=== PATIENT | female | born 1985 | race Caucasian/White ===

== ENCOUNTER 2018-04-28 14:49 | Emergency (ER) | payer OTHER ==
--- NOTE | 2018-04-28 15:18 | ED Physician Documentation ---
History of Present Illness - Stated complaint Stated Complaint: CARBON MENOXIDE EXPOSURE - Chief complaint Chief Complaint: General - History obtained from History obtained from: Patient - History of Present Illness Timing: Other (They have been helping their parents move. They would last in the house yesterday morning. She has had headaches and nausea. She does have a history of migraines but her Imitrex is not helpful. It was found during the moving screening process that the furnace in that house was leaking carbon monoxide.) Review of Systems Constitutional: reports: Fatigue. denies: Fever, Chills Nose: reports: Rhinorrhea / runny nose Cardiac: denies: Chest pain / pressure, Palpitations Respiratory: reports: Dyspnea. denies: Cough GI: reports: Nausea, Vomiting. denies: Abdominal Pain : denies: Now EGA PD PAST MEDICAL HISTORY - Past Medical History GI: Chronic diarrhea Psych: None - Past Surgical History Past Surgical History: Yes General: Cholecystectomy - Present Medications Home Medications: Ambulatory Orders Medication Instructions Recorded Confirmed Ondansetron Odt [Zofran] 4 mg TL Q6H PRN #10 tablet 06/15/14 04/28/18 Butalb/Acetaminophen/Caffeine 1 - 2 each PO Q4H PRN #10 capsule 07/19/14 04/28/18 [Fioricet 50-300-40 mg Capsule] SUMAtriptan [Imitrex] 25 mg PO PRN PRN 04/28/18 04/28/18 - Allergies Allergies/Adverse Reactions: Allergies Allergy/AdvReac Type Severity Reaction Status Date / Time No Known Drug Allergies Allergy Verified 04/28/18 15:11 - Social History Does the pt smoke?: No Smoking Status: Never smoker Does the pt drink ETOH?: No Does the pt have substance abuse?: No - Immunizations Immunizations are current?: Yes - POLST Patient has POLST: No PD ED PE NORMAL - Vitals Vital signs reviewed: Yes - General General: Alert and oriented X 3, No acute distress - HEENT HEENT: PERRL, EOMI, Ears normal - Neck Neck: Supple, no meningeal sign, No bony TTP - Cardiac Cardiac: RRR, No murmur - Respiratory Respiratory: No respiratory distress, Clear bilaterally - Abdomen Abdomen: Non tender - Derm Derm: No rash - Neuro Neuro: Alert and oriented X 3, Normal speech Results - Vitals Vitals: Vital Signs - 24 hr 04/28/18 04/28/18 15:09 16:56 Temperature 37.2 C 37.1 C Heart Rate 96 80 Respiratory 18 12 Rate Blood Pressure 122/88 H 109/63 O2 Saturation 99 98 Oxygen O2 Source Room air - Labs Labs: Laboratory Tests 04/28/18 15:25 VBG Total Hgb 14.2 VBG Oxyhemoglobin 67 L VBG Carboxyhemoglobin 1.1 VBG Methemoglobin 0.2 Departure - Departure Disposition: 01 Home, Self Care Clinical Impression: Migraine Condition: Stable Instructions: ED Cephalgia Unspecified Comments: Call your doctor to arrange a follow-up appointment, make the next available appointment. In the interim, return anytime if worse or if new symptoms develop. Discharge Date/Time: 04/28/18 17:11
[2018-04-28] MEDS ORDERED: METOCLOPRAMIDE 10 MG/2 ML VIAL IM STA (16:10)
[2018-04-28] MEDS ORDERED: HYDROmorphone 2 MG/ML VIAL IM STA (16:10)
[2018-04-28 16:57] VITALS: BP 109/63
== END 2018-04-28 17:11 | disposition home or self-care (01) ==
LOC: ED 14:49
DX: G43.909 Migraine, unspecified, not intractable, without status migrainosus (principal); Z77.29 Contact with and (suspected) exposure to other hazardous substances
CPT/HCPCS: 36415; 82375; 96372; 99282; 99283; J1170; J2765

== ENCOUNTER 2018-06-25 09:41 | Outpatient (CLI) | payer OTHER ==
--- NOTE | 2018-06-27 09:36 | MRI Report ---
Reason: INTERNAL DERANGEMENT,RIGHT KNEE Procedure Date: 06/25/2018 Accession Number: [id number] / [id number] Procedure: MRI - Knee RT W/O CPT Code: FULL RESULT: EXAM: RIGHT KNEE MRI WITHOUT CONTRAST EXAM DATE: 06/25/2018 10:56 AM. CLINICAL HISTORY: Internal derangement, right knee. COMPARISON: None. TECHNIQUE: Multiplanar, multisequence T1-weighted and fluid-sensitive sequences of the knee without contrast. Other: None. FINDINGS: Bones: Focal subjacent marrow edema at the lateral aspect of the medial femoral condyle. Overlying articular cartilage is normal. Articular Cartilage: Unremarkable. Medial Meniscus: The medial meniscus is intact. Lateral Meniscus: The lateral meniscus is intact. Cruciate Ligaments: The anterior and posterior cruciate ligaments are intact. Collateral Ligaments: The medial collateral and lateral collateral ligamentous structures are intact. Tendons: The quadriceps, patellar, semimembranosus, and popliteus tendons are unremarkable. Musculature: No edema or fatty atrophy. Other: No effusion. Small popliteal cyst. No loose bodies. The medial and lateral retinacula are intact. Some edema seen in the posterior aspect of Hoffa's fat pad. IMPRESSION: 1. Focal subjacent marrow edema at the lateral aspect of the medial femoral condyle. Overlying articular cartilage is normal. 2. Menisci, cruciates and collaterals appear unremarkable. 3. Small popliteal cyst. Some edema over the posterior aspect of Hoffa's fat pad. RADIA
== END 2018-06-25 09:42 | disposition home or self-care (01) ==
LOC: DI 09:41
PROVIDERS: ATTEND Physician Assistant
DX: M23.91 Unspecified internal derangement of right knee (principal); M71.21 Synovial cyst of popliteal space [Baker], right knee

== ENCOUNTER 2018-08-28 11:52 | Emergency (ER) | payer OTHER ==
[2018-08-28 12:52] LABS: BASOPHILS % (AUTO) 0.4 %; EOSINOPHILS % (AUTO) 0.4 %; HGB - HEMOGLOBIN 14.1 g/dL (12.0-16.0); LYMPHOCYTES # (AUTO) 0.6 10^3/uL (1.5-3.5); LYMPHOCYTES % (AUTO) 11.6 %; MEAN CORPUSCULAR HGB CONC 33.8 g/dL (32.0-36.0); MEAN CORPUSCULAR VOLUME 94.8 fL (81.0-99.0); MEAN PLATELET VOLUME 9.7 fL (7.9-10.8); MONOCYTES # (AUTO) 0.4 10^3/uL (0.0-1.0); MONOCYTES % (AUTO) 6.5 %; NEUTROPHILS # (AUTO) 4.5 10^3/uL (1.5-6.6); NEUTROPHILS % (AUTO) 80.7 %; PLT - PLATELET COUNT 232 10^3/uL (130-450); RED CELL DISTRIBUTION WIDTH 12.2 % (12.0-15.0); WHITE BLOOD COUNT 5.5 x10^3/uL (4.8-10.8)
[2018-08-28 13:09] LABS: ALBUMIN 4.3 g/dL (3.2-5.5); ALBUMIN/GLOBULIN RATIO 1.3 (1.0-2.2); BILIRUBIN,TOTAL 1.1 mg/dL (0.2-1.0); CALCIUM 8.9 mg/dL (8.5-10.3); CREATININE 0.7 mg/dL (0.4-1.0); TOTAL PROTEIN 7.7 g/dL (6.7-8.2)
[2018-08-28] MEDS ORDERED: ONDANSETRON ODT 4 MG TABLET TL STA (13:20)
[2018-08-28] MEDS ORDERED: ALBUTEROL NEB 2.5 MG/3 ML INH STA (13:20)
[2018-08-28 13:34] LABS: GLUCOSE, URINE (UA) NEGATIVE (NEGATIVE); KETONES,URINE (UA) >=80 mg/dL (NEGATIVE); LEUKOCYTE ESTERASE, URINE NEGATIVE (NEGATIVE); NITRITE,URINE NEGATIVE (NEGATIVE); OCCULT BLOOD,URINE NEGATIVE (NEGATIVE); PROTEIN,URINE 30 mg/dL (NEGATIVE); UROBILINOGEN,URINE 0.2 (NORMAL) E.U./dL (NORMAL)
--- NOTE | 2018-08-28 13:35 | ED Physician Documentation ---
History of Present Illness - Stated complaint Stated Complaint: VOMITING/COUGH/HEADACHE - Chief complaint Chief Complaint: General - History obtained from History obtained from: Patient - History of Present Illness Timing: How many days ago (2) Pain level max: 3 Pain level now: 3 - Additonal information Additional information: 32-year-old female presents the emergency department with fevers and coughing for the past 2 days. She is occasionally breast-feeding her [id number]. She is having coughing fits which caused her to gag and vomit. Cough is mostly nonproductive. Nothing makes it better or worse. 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 : None HEENT: None Psych: None Musculoskeletal: None Derm: None - Past Surgical History Past Surgical History: Yes General: Cholecystectomy - Present Medications Home Medications: Ambulatory Orders Medication Instructions Recorded Confirmed Ondansetron Odt [Zofran] 4 mg TL Q6H PRN #10 tablet 06/15/14 04/28/18 Butalb/Acetaminophen/Caffeine 1 - 2 each PO Q4H PRN #10 capsule 07/19/14 04/28/18 [Fioricet 50-300-40 mg Capsule] SUMAtriptan [Imitrex] 25 mg PO PRN PRN 04/28/18 04/28/18 Albuterol Sulf [Ventolin Hfa 1 - 2 puffs INH Q4HR PRN #1 inhaler 08/28/18 Inhaler] Benzonatate [Tessalon Perle] 100 - 200 mg PO TID PRN #30 capsule 08/28/18 Cefdinir 300 mg PO BID #20 capsule 08/28/18 Ondansetron Odt [Zofran] 4 mg TL Q6H PRN #10 tablet 08/28/18 - Allergies Allergies/Adverse Reactions: Allergies Allergy/AdvReac Type Severity Reaction Status Date / Time No Known Drug Allergies Allergy Verified 04/28/18 15:11 - Social History Does the pt smoke?: No Smoking Status: Never smoker Does the pt drink ETOH?: No Does the pt have substance abuse?: No - Immunizations Immunizations are current?: Yes - POLST Patient has POLST: No PD ED PE NORMAL - Vitals Vital signs reviewed: Yes - General General: Alert and oriented X 3, No acute distress, Well developed/nourished - HEENT HEENT: Moist mucous membranes - Neck Neck: Supple, no meningeal sign - Cardiac Cardiac: RRR - Respiratory Respiratory: No respiratory distress, Other (Wheezing and rhonchi right lower lobe) - Abdomen Abdomen: Soft, Non tender, Non distended - Derm Derm: Warm and dry - Extremities Extremities: No edema - Neuro Neuro: Alert and oriented X 3 - Psych Psych: Normal mood, Normal affect Results - Vitals Vitals: Vital Signs - 24 hr 08/28/18 08/28/18 08/28/18 12:27 13:38 13:45 Temperature 37.5 C Heart Rate 98 105 H 105 H Respiratory 20 18 20 Rate Blood Pressure 104/70 99/58 L O2 Saturation 98 95 08/28/18 15:51 Temperature Heart Rate 95 Respiratory 16 Rate Blood Pressure 94/54 L O2 Saturation 98 Oxygen O2 Source Room air - Labs Labs: Laboratory Tests 08/28/18 08/28/18 08/28/18 12:48 12:48 13:27 WBC 5.5 RBC 4.40 Hgb 14.1 Hct 41.7 MCV 94.8 MCH 32.0 H MCHC 33.8 RDW 12.2 Plt Count 232 MPV 9.7 Neut # (Auto) 4.5 Lymph # (Auto) 0.6 L [place] # (Auto) 0.4 Eos # (Auto) 0.0 Baso # (Auto) 0.0 Absolute Nucleated RBC 0.00 Nucleated RBC % 0.0 Sodium 141 Potassium 3.1 L Chloride 104 Carbon Dioxide 23 Anion Gap 14.0 H BUN 12 Creatinine 0.7 Estimated GFR (MDRD) 98 Glucose 99 Calcium 8.9 Total Bilirubin 1.1 H AST 14 ALT 14 Alkaline Phosphatase 77 Total Protein 7.7 Albumin 4.3 Globulin 3.4 Albumin/Globulin Ratio 1.3 Lipase 20 L Urine Color YELLOW Urine Clarity HAZY Urine pH 6.0 Ur Specific [place] >=1.030 H Urine Protein 30 H Urine Glucose (UA) NEGATIVE Urine Ketones >=80 H Urine Occult Blood NEGATIVE Urine Nitrite NEGATIVE Urine Bilirubin NEGATIVE Urine Urobilinogen 0.2 (NORMAL) Ur Leukocyte Esterase NEGATIVE Urine RBC 0-5 Urine WBC 4-5 Ur Squamous Epith Cells MANY Squamous H Urine Bacteria Many H Urine Mucus Marked Strands Ur Microscopic Review INDICATED Urine Culture Comments NOT INDICATED - Rads (name of study) cxr Radiology: Prelim report reviewed, EMP read contemporaneously, See rad report (No acute disease) PD MEDICAL DECISION MAKING - ED course Complexity details: reviewed results, re-evaluated patient, considered differential, d/w patient, d/w family ED course: Patient feels better after IV fluids and nebulizer treatment. Tolerating p.o. without difficulty. Concern for clinical pneumonia. Will place on azithromycin. Patient is well-appearing, nontoxic. Afebrile. No hypoxia. Patient counseled regarding signs and symptoms for which I believe and urgent re-evaluation would be necessary. Patient with good understanding of and agreement to plan and is comfortable going home at this time This document was made in part using voice recognition software. While efforts are made to proofread this document, sound alike and grammatical errors may occur. Departure - Departure Disposition: 01 Home, Self Care Clinical Impression: Atypical pneumonia Condition: Good Health Concerns: cough Plan of Treatment: abx, inhaler Care Goals: improve Assessment: improved Instructions: ED Pneumonia Adult Follow-Up: Carla Rosario PA-C [Primary Care Provider] - Within 1 week Prescriptions: Albuterol Sulf [Ventolin Hfa Inhaler] 1 - 2 puffs INH Q4HR PRN #1 inhaler PRN Reason: Shortness Of Air/Wheezing Benzonatate [Tessalon Perle] 100 - 200 mg PO TID PRN #30 capsule PRN Reason: Cough Cefdinir 300 mg PO BID #20 capsule Ondansetron Odt [Zofran] 4 mg TL Q6H PRN #10 tablet PRN Reason: Nausea / Vomiting Comments: Take all antibiotics until gone. Return if you worsen. Follow-up with your doctor for further evaluation and care. Try to avoid breast feeding with the medications. Discharge Date/Time: 08/28/18 15:52
[2018-08-28 13:38] LABS: BILIRUBIN,URINE NEGATIVE (NEGATIVE); CLARITY,URINE HAZY (CLEAR); ICTOTEST,URINE NEGATIVE
[2018-08-28] MEDS ORDERED: SODIUM CHLORIDE 0.9% 1,000 ML IV ONE (13:42)
[2018-08-28 13:45] LABS: BACTERIA,URINE Many /HPF (None Seen); MUCUS,URINE Marked Strands; RBC,URINE 0-5 /HPF (0-5); SQUAMOUS EPITHELIAL CELL,UR MANY Squamous (<= Few)
--- NOTE | 2018-08-28 13:49 | XRAY Report ---
Reason: cough Procedure Date: 08/28/2018 Accession Number: [id number] / [id number] Procedure: XR - Chest 2 View X-Ray CPT Code: 93666 FULL RESULT: EXAM: CHEST RADIOGRAPHY EXAM DATE: 08/28/2018 01:31 PM. CLINICAL HISTORY: Cough. COMPARISON: ABDOMEN ACUTE 09/11/2013 11:21 AM. TECHNIQUE: 2 views. FINDINGS: Lungs/Pleura: No focal opacities evident. No pleural effusion. No pneumothorax. Normal volumes. Mediastinum: Heart and mediastinal contours are unremarkable. Other: None. IMPRESSION: Normal 2-view chest radiography. RADIA
[2018-08-28 15:52] VITALS: BP 94/54
== END 2018-08-28 15:52 | disposition home or self-care (01) ==
LOC: ED 11:52
DX: J18.9 Pneumonia, unspecified organism (principal)
CPT/HCPCS: 36415; 71046; 80053; 81001; 83690; 85025; 94640; 96360; 96361; 99283; 99284; Q0162; 81003; 87086

== ENCOUNTER 2019-12-20 17:33 | Emergency (ER) | payer OTHER ==
[2019-12-20] MEDS ORDERED: SODIUM CHLORIDE 0.9% 1,000 ML IV STA (19:04)
[2019-12-20] MEDS ORDERED: diphenhydrAMINE INJ 50 MG/ML VIAL IVP STA (19:04)
[2019-12-20] MEDS ORDERED: METOCLOPRAMIDE 10 MG/2 ML VIAL IVP STA (19:04)
--- NOTE | 2019-12-20 19:07 | ED Physician Documentation ---
History of Present Illness - Stated complaint Stated Complaint: LEFT SIDE WEAKNESS/BLURRY VISION - Chief complaint Chief Complaint: Neuro - Additonal information Additional information: 34-year-old female presents the emergency department for evaluation of a left- sided headache that has been present now for 48 hours. This young lady is about 12-1/2 weeks . G4, . She does have a history of recurrent migraines that she typically takes Imitrex for. However with the she has been unable to take that. She did try taking Fioricet prescribed by her OB without relief. She has a light but no noise sensitivity. Headache is left- sided with radiation to her neck and arm. She has been told that she has a discogenic headaches as well that often cause pain in her neck. She does feel fuzzy and lightheaded. She has been vomiting which she thinks is contributing to the symptoms. This migraine is not different than typical. She reports to me that in 2017 she had extensive MRA and MRI imaging of the brain that was essentially unremarkable. Patient denies fever, chills chest pain or shortness of breath. She denies dysuria urgency or frequency. Patient is attended by an [facility] at [facility]. She has had an ultrasound confirming intrauterine . She denies vaginal bleeding pelvic pain or loss of fluids Review of Systems Constitutional: reports: Reviewed and negative Eyes: reports: Photophobia Ears: reports: Reviewed and negative Nose: reports: Reviewed and negative Throat: reports: Reviewed and negative Cardiac: reports: Reviewed and negative Respiratory: reports: Reviewed and negative GI: reports: Nausea, Vomiting. denies: Constipation, Diarrhea : denies: Dysuria, Frequency, Hesitancy Skin: reports: Reviewed and negative Musculoskeletal: reports: Reviewed and negative Neurologic: reports: Headache. 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 : None HEENT: None Psych: None Musculoskeletal: None Derm: None - Past Surgical History Past Surgical History: Yes General: Cholecystectomy - Present Medications Home Medications: Ambulatory Orders Medication Instructions Recorded Confirmed Ondansetron Odt [Zofran] 4 mg TL Q6H PRN #10 tablet 06/15/14 04/28/18 Butalb/Acetaminophen/Caffeine 1 - 2 each PO Q4H PRN #10 capsule 07/19/14 04/28/18 [Fioricet 50-300-40 mg Capsule] SUMAtriptan [Imitrex] 25 mg PO PRN PRN 04/28/18 04/28/18 Albuterol Sulf [Ventolin Hfa 1 - 2 puffs INH Q4HR PRN #1 inhaler 08/28/18 Inhaler] Benzonatate [Tessalon Perle] 100 - 200 mg PO TID PRN #30 capsule 08/28/18 Cefdinir 300 mg PO BID #20 capsule 08/28/18 Ondansetron Odt [Zofran] 4 mg TL Q6H PRN #10 tablet 08/28/18 - Allergies Allergies/Adverse Reactions: Allergies Allergy/AdvReac Type Severity Reaction Status Date / Time No Known Drug Allergies Allergy Verified 04/28/18 15:11 - Social History Does the pt smoke?: No Smoking Status: Never smoker Does the pt drink ETOH?: No Does the pt have substance abuse?: No - Immunizations Immunizations are current?: Yes - POLST Patient has POLST: No PD ED PE EXPANDED - General General: Alert, In Pain - HEENT HEENT: Atraumatic, PERRL, EOMI, Moist mucous membranes, Pharynx normal - Eyes Eyes: PERRL, Normal accommodation, EOMI - Neck Neck: Supple w/out meningeal sx. No: Bruit present, Adenopathy - Cardiac Cardiac: Regular Rate, Regular Rhythm, Radial strong equal, Femoral strong equal, Pedal strong equal - Respiratory Respiratory: Clear to ausultation rogelio. No: Distress, Labored - Abdomen Abdomen: Normal Bowel sounds. No: Tender to palpation - Derm Derm: Normal color. No: Rash - Neuro Neuro: Alert and Oriented X 3, Normal motor, Normal Sensation, CNII-XII intact, Normal gait, Normal finger nose, Normal speech - GCS Eye Opening: Spontaneous Motor: Obeys Commands Verbal: Oriented Total: 15 Results - Vitals Vitals: Vital Signs - 24 hr 12/20/19 12/20/19 18:25 19:18 Temperature 37.6 C H 36.8 C Heart Rate 84 78 Respiratory 20 16 Rate Blood Pressure 113/64 104/57 L O2 Saturation 100 100 Oxygen O2 Source Room air - Labs Labs: Laboratory Tests 12/20/19 12/20/19 12/20/19 19:11 19:15 19:31 WBC 7.2 RBC 3.95 L Hgb 13.5 Hct 37.6 MCV 95.2 MCH 34.2 H MCHC 35.9 RDW 11.9 L Plt Count 324 MPV 9.9 Neut # (Auto) 5.1 Lymph # (Auto) 1.7 [place] # (Auto) 0.4 Eos # (Auto) 0.0 Baso # (Auto) 0.0 Absolute Nucleated RBC 0.00 Nucleated RBC % 0.0 Sodium 138 Potassium 3.3 L Chloride 105 Carbon Dioxide 25 Anion Gap 8.0 BUN 8 Creatinine 0.4 Estimated GFR (MDRD) 185 Glucose 94 Calcium 8.9 Total Bilirubin 0.4 AST 10 ALT 12 Alkaline Phosphatase 44 Total Protein 6.4 L Albumin 3.6 Globulin 2.8 Albumin/Globulin Ratio 1.3 Lipase 21 L Urine Color YELLOW Urine Clarity CLEAR Urine pH 6.0 Ur Specific [place] >=1.030 H Urine Protein NEGATIVE Urine Glucose (UA) NEGATIVE Urine Ketones TRACE Urine Occult Blood NEGATIVE Urine Nitrite NEGATIVE Urine Bilirubin NEGATIVE Urine Urobilinogen 0.2 (NORMAL) Ur Leukocyte Esterase NEGATIVE Ur Microscopic Review NOT INDICATED Urine Culture Comments NOT INDICATED PD MEDICAL DECISION MAKING - ED course Complexity details: reviewed results, re-evaluated patient, considered differential, d/w patient ED course: 34-year-old female presents to the emergency department with 2 days of left- sided headache. This is typical of her regular migraines however because she is she is unable to take her Imitrex as she normally does. Fioricet prescribed by her OB was not effective. Here in the emergency department her neurological exam was unremarkable without any focal deficits or cerebellar findings. She did have unremarkable MRI and MRA imaging of the brain in 2017 with regard to her migraines. She did have routine screening labs performed. There was no leukocytosis or significant abnormality with her chemistries. Her urine shows no signs of infection Here in the emergency department she was given a liter of crystalloid as well as Reglan and Benadryl. Following reevaluation after about an hour in the emergency department she reported that most of her headache had begun to parmjit. Her blood pressure has been normal and not elevated. She has no lower abdominal pain vaginal bleeding. She has had an ultrasound confirming intrauterine . Pelvic exam and imaging deferred with this ed visit and not indicated Her exam and history is not consistent with preeclampsia. She has no fevers or nuchal rigidity. Without leukocytosis or other neuro findings my suspicion for bacterial meningitis is low She will be discharged home and is requesting to be discharged at this time. 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 Emergent return precautions discussed Departure - Departure Disposition: Home, Self Care Clinical Impression: and not yet delivered in second trimester Migraine Qualifiers: Migraine type: unspecified Status migrainosus presence: without status migrainosus Intractability: not intractable Qualified Code(s): G43.909 - Migraine, unspecified, not intractable, without status migrainosus Condition: Stable Comments: Honey I am glad that your headache is improving. We gave you Benadryl and Reglan here in the emergency department as well as some IV fluids. Continue to take Tylenol or Fioricet at home as advised by your OB. Your labs today were essentially unremarkable. Your urine showed no signs of infection. Please discuss this ED visit with your primary doctor as well as your OB. If at any point you develop a suddenly severe or different headache, have fevers, uncontrolled vomiting or any fainting episodes please return immediately to the ER
[2019-12-20 19:16] LABS: BASOPHILS % (AUTO) 0.3 %; EOSINOPHILS % (AUTO) 0.6 %; HGB - HEMOGLOBIN 13.5 g/dL (12.0-16.0); LYMPHOCYTES # (AUTO) 1.7 10^3/uL (1.5-3.5); LYMPHOCYTES % (AUTO) 23.3 %; MEAN CORPUSCULAR HEMOGLOBIN 34.2 pg (27.0-31.0); MEAN CORPUSCULAR HGB CONC 35.9 g/dL (32.0-36.0); MEAN CORPUSCULAR VOLUME 95.2 fL (81.0-99.0); MEAN PLATELET VOLUME 9.9 fL (7.9-10.8); MONOCYTES # (AUTO) 0.4 10^3/uL (0.0-1.0); MONOCYTES % (AUTO) 5.4 %; NEUTROPHILS # (AUTO) 5.1 10^3/uL (1.5-6.6); NEUTROPHILS % (AUTO) 70.1 %; PLT - PLATELET COUNT 324 10^3/uL (130-450); RED BLOOD COUNT 3.95 10^6/uL (4.20-5.40); RED CELL DISTRIBUTION WIDTH 11.9 % (12.0-15.0); WHITE BLOOD COUNT 7.2 x10^3/uL (4.8-10.8)
[2019-12-20 19:20] LABS: BILIRUBIN,URINE NEGATIVE (NEGATIVE); GLUCOSE, URINE (UA) NEGATIVE (NEGATIVE); KETONES,URINE (UA) TRACE mg/dL (NEGATIVE); LEUKOCYTE ESTERASE, URINE NEGATIVE (NEGATIVE); NITRITE,URINE NEGATIVE (NEGATIVE); OCCULT BLOOD,URINE NEGATIVE (NEGATIVE); PROTEIN,URINE NEGATIVE (NEGATIVE); UROBILINOGEN,URINE 0.2 (NORMAL) E.U./dL (NORMAL)
[2019-12-20 19:22] LABS: CLARITY,URINE CLEAR (CLEAR)
[2019-12-20 19:50] LABS: ALBUMIN 3.6 g/dL (3.2-5.5); ALBUMIN/GLOBULIN RATIO 1.3 (1.0-2.2); BILIRUBIN,TOTAL 0.4 mg/dL (0.2-1.0); CALCIUM 8.9 mg/dL (8.5-10.3); CREATININE 0.4 mg/dL (0.4-1.0); TOTAL PROTEIN 6.4 g/dL (6.7-8.2)
[2019-12-20 20:28] VITALS: BP 97/64
== END 2019-12-20 20:36 | disposition home or self-care (01) ==
LOC: ED 17:33
DX: O99.891 Other specified diseases and conditions complicating pregnancy (principal); G43.909 Migraine, unspecified, not intractable, without status migrainosus; Z3A.12 12 weeks gestation of pregnancy
CPT/HCPCS: 36415; 80053; 81003; 83690; 85025; 96361; 96374; 96375; 99283; 99284; J1200; J2765; 81001; 87086

== ENCOUNTER 2019-12-25 19:17 | Emergency (ER) | payer OTHER ==
[2019-12-25] MEDS ORDERED: SODIUM CHLORIDE 0.9% 1,000 ML IV STA (19:35)
[2019-12-25 19:55] LABS: BASOPHILS % (AUTO) 0.4 %; HGB - HEMOGLOBIN 13.8 g/dL (12.0-16.0); LYMPHOCYTES # (AUTO) 1.1 10^3/uL (1.5-3.5); LYMPHOCYTES % (AUTO) 9.9 %; MEAN CORPUSCULAR HEMOGLOBIN 33.3 pg (27.0-31.0); MEAN CORPUSCULAR HGB CONC 35.1 g/dL (32.0-36.0); MEAN CORPUSCULAR VOLUME 94.7 fL (81.0-99.0); MEAN PLATELET VOLUME 9.6 fL (7.9-10.8); MONOCYTES # (AUTO) 0.3 10^3/uL (0.0-1.0); MONOCYTES % (AUTO) 2.7 %; NEUTROPHILS # (AUTO) 9.2 10^3/uL (1.5-6.6); NEUTROPHILS % (AUTO) 86.5 %; PLT - PLATELET COUNT 331 10^3/uL (130-450); RED BLOOD COUNT 4.15 10^6/uL (4.20-5.40); RED CELL DISTRIBUTION WIDTH 11.8 % (12.0-15.0); WHITE BLOOD COUNT 10.6 x10^3/uL (4.8-10.8)
[2019-12-25 19:56] LABS: BILIRUBIN,URINE NEGATIVE (NEGATIVE); GLUCOSE, URINE (UA) NEGATIVE (NEGATIVE); KETONES,URINE (UA) >=80 mg/dL (NEGATIVE); LEUKOCYTE ESTERASE, URINE NEGATIVE (NEGATIVE); NITRITE,URINE NEGATIVE (NEGATIVE); OCCULT BLOOD,URINE NEGATIVE (NEGATIVE); PH,URINE 6.5 PH (5.0-7.5); PROTEIN,URINE NEGATIVE (NEGATIVE); UROBILINOGEN,URINE 0.2 (NORMAL) E.U./dL (NORMAL)
[2019-12-25 19:59] LABS: CLARITY,URINE CLEAR (CLEAR)
[2019-12-25 20:05] LABS: ALBUMIN 4.1 g/dL (3.2-5.5); ALBUMIN/GLOBULIN RATIO 1.2 (1.0-2.2); BILIRUBIN,TOTAL 0.8 mg/dL (0.2-1.0); CALCIUM 9.3 mg/dL (8.5-10.3); CREATININE 0.4 mg/dL (0.4-1.0); TOTAL PROTEIN 7.4 g/dL (6.7-8.2)
[2019-12-25] MEDS ORDERED: PROMETHAZINE INJ 25 MG in SODIUM CHLORIDE 0.9% 50 ML IV STA (20:24)
[2019-12-25] MEDS ORDERED: diphenhydrAMINE INJ 50 MG/ML VIAL IVP STA (20:24)
--- NOTE | 2019-12-25 20:30 | ED Physician Documentation ---
History of Present Illness - Stated complaint Stated Complaint: 13 WKS-N/V MIGRAINE - Chief complaint Chief Complaint: Abd Pain - History obtained from History obtained from: Patient, Family - History of Present Illness Timing: Today Pain level max: 8 Pain level now: 8 - Additonal information Additional information: 13 weeks with headache today. history of migraines. similar to prior. started this am. Worse with light and sound, better with rest. Usually takes Imitrex. Could not keep her medications down today. Has Fioricet at home as well. She states that this occurs every time she is . Review of Systems Constitutional: denies: Fever, Chills Cardiac: denies: Chest pain / pressure Respiratory: denies: Cough GI: reports: Nausea, Vomiting. 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 : None HEENT: None Psych: None Musculoskeletal: None Derm: None - Past Surgical History Past Surgical History: Yes General: Cholecystectomy - Present Medications Home Medications: Ambulatory Orders Medication Instructions Recorded Confirmed Ondansetron Odt [Zofran] 4 mg TL Q6H PRN #10 tablet 06/15/14 04/28/18 Butalb/Acetaminophen/Caffeine 1 - 2 each PO Q4H PRN #10 capsule 07/19/14 04/28/18 [Fioricet 50-300-40 mg Capsule] SUMAtriptan [Imitrex] 25 mg PO PRN PRN 04/28/18 04/28/18 Albuterol Sulf [Ventolin Hfa 1 - 2 puffs INH Q4HR PRN #1 inhaler 08/28/18 Inhaler] Benzonatate [Tessalon Perle] 100 - 200 mg PO TID PRN #30 capsule 08/28/18 Cefdinir 300 mg PO BID #20 capsule 08/28/18 Ondansetron Odt [Zofran] 4 mg TL Q6H PRN #10 tablet 08/28/18 Promethazine Supp [Phenergan Supp] 25 mg NH Q6H PRN #10 supp 12/25/19 - Allergies Allergies/Adverse Reactions: Allergies Allergy/AdvReac Type Severity Reaction Status Date / Time No Known Drug Allergies Allergy Verified 12/25/19 19:20 - Social History Does the pt smoke?: No Smoking Status: Never smoker Does the pt drink ETOH?: No Does the pt have substance abuse?: No - Immunizations Immunizations are current?: Yes - POLST Patient has POLST: No PD ED PE NORMAL - Vitals Vital signs reviewed: Yes - General General: Alert and oriented X 3, No acute distress - HEENT HEENT: Moist mucous membranes - Neck Neck: Supple, no meningeal sign - Cardiac Cardiac: RRR, Strong equal pulses - Respiratory Respiratory: No respiratory distress, Clear bilaterally - Abdomen Abdomen: Soft, Non tender, Non distended - Derm Derm: Warm and dry - Neuro Neuro: Alert and oriented X 3, order manager 2-12 intact, No motor deficit, No sensory deficit, Normal speech Eye Opening: Spontaneous Motor: Obeys Commands Verbal: Oriented GCS Score: 15 - Psych Psych: Normal mood, Normal affect Results - Vitals Vitals: Vital Signs - 24 hr 12/25/19 12/25/19 19:20 19:54 Temperature 36.6 C Heart Rate 116 H 85 Respiratory 16 16 Rate Blood Pressure 113/74 105/56 L O2 Saturation 98 100 Oxygen O2 Source Room air - Labs Labs: Laboratory Tests 12/25/19 12/25/19 12/25/19 19:30 19:48 19:48 WBC 10.6 RBC 4.15 L Hgb 13.8 Hct 39.3 MCV 94.7 MCH 33.3 H MCHC 35.1 RDW 11.8 L Plt Count 331 MPV 9.6 Neut # (Auto) 9.2 H Lymph # (Auto) 1.1 L Brule # (Auto) 0.3 Eos # (Auto) 0.0 Baso # (Auto) 0.0 Absolute Nucleated RBC 0.00 Nucleated RBC % 0.0 Sodium 137 Potassium 3.4 L Chloride 105 Carbon Dioxide 22 Anion Gap 10.0 BUN 10 Creatinine 0.4 Estimated GFR (MDRD) 185 Glucose 106 H Calcium 9.3 Total Bilirubin 0.8 AST 13 ALT 14 Alkaline Phosphatase 57 Total Protein 7.4 Albumin 4.1 Globulin 3.3 Albumin/Globulin Ratio 1.2 Lipase 21 L Urine Color YELLOW Urine Clarity CLEAR Urine pH 6.5 Ur Specific [place] 1.025 Urine Protein NEGATIVE Urine Glucose (UA) NEGATIVE Urine Ketones >=80 H Urine Occult Blood NEGATIVE Urine Nitrite NEGATIVE Urine Bilirubin NEGATIVE Urine Urobilinogen 0.2 (NORMAL) Ur Leukocyte Esterase NEGATIVE Ur Microscopic Review NOT INDICATED Urine Culture Comments NOT INDICATED PD MEDICAL DECISION MAKING - ED course Complexity details: reviewed results, re-evaluated patient, considered differential, d/w patient, d/w family ED course: GORMAN improved with toradol, phenergan, benadryl, and imitrex. Feels much better. No evidence of subarachnoid hemorrhage. No evidence of tumor or mass. We will have her go home and sleep. She will follow-up with her doctor for further care. Patient counseled regarding signs and symptoms for which I believe and urgent re-evaluation would be necessary. Patient with good understanding of and agreement to plan and is comfortable going home at this time This document was made in part using voice recognition software. While efforts are made to proofread this document, sound alike and grammatical errors may occur. Departure - Departure Disposition: 01 Home, Self Care Clinical Impression: Vomiting Qualifiers: Weeks of gestation: 13 weeks Qualified Code(s): Z3A.13 - 13 weeks gestation of Migraine Qualifiers: Migraine type: unspecified Status migrainosus presence: without status migrainosus Intractability: not intractable Qualified Code(s): G43.909 - Migraine, unspecified, not intractable, without status migrainosus Condition: Good Instructions: ED Cephalgia Unspecified Follow-Up: Carla Rosario PA-C [Primary Care Provider] - Within 1 week Prescriptions: Promethazine Supp [Phenergan Supp] 25 mg [place] Q6H PRN #10 supp PRN Reason: vomiting Comments: Go home and rest tonight. Return if you worsen. Follow-up with your doctor for further care.
[2019-12-25] MEDS ORDERED: PROMETHAZINE 25 MG/1 ML VIAL ONE (20:36)
[2019-12-25] MEDS ORDERED: KETOROLAC 30 MG/ML VIAL IVP STA (21:23)
[2019-12-25] MEDS ORDERED: MORPHINE 2 MG/ML CARPUJECT IVP STA (21:23)
[2019-12-25] MEDS ORDERED: SUMAtriptan 6 MG/0.5 ML VIAL SUBQ STA (22:00)
[2019-12-25 22:46] VITALS: BP 104/60
== END 2019-12-25 23:00 | disposition home or self-care (01) ==
LOC: ED 19:17
DX: O99.891 Other specified diseases and conditions complicating pregnancy (principal); G43.909 Migraine, unspecified, not intractable, without status migrainosus; O21.9 Vomiting of pregnancy, unspecified; Z3A.13 13 weeks gestation of pregnancy
CPT/HCPCS: 36415; 80053; 81003; 83690; 85025; 96365; 96372; 96375; 99284; J1200; J7040; 81001; 87086

== ENCOUNTER 2020-05-13 07:00 | Outpatient (CLI) | payer OTHER | END 2020-05-13 23:59 | disposition home or self-care (01) | LOC: LAB.R 07:00 | PROVIDERS: ATTEND Nurse Practitioner | DX: R07.0 Pain in throat (principal); Z20.822 Contact with and (suspected) exposure to COVID-19 | CPT/HCPCS: 87070; 87275; 87276 ==